=== PATIENT | female | born 1960 | race Caucasian/White ===

== ENCOUNTER → 2016-05-26 | Outpatient (CLI) | payer OTHER ==
--- NOTE | 2016-05-26 13:20 | DX ---
Upright PA and Lateral Chest, 2 Views Total, at 12:20 p.m. Clinical History: 56-year-old female with a cough and fever for 4 days and cold symptoms for 2 weeks and a prior remote history of a pneumothorax. ICD 10 Diagnostic Code: J93.83. Comparison Studies: Chest, dated 06/04/14 and 02/08/2014. Findings: There is a mild sigmoid-shaped thoracic curvature. The cardiac and mediastinal silhouette i s normal in size. There is no focal infiltrate, atelectasis, pleural effusion, peripheral interstitia l edema, or pneumothorax. The patient's arms obscure the anterior retrosternal space on the lateral v iew. The trachea is midline. Impression: No acute abnormality. As requested, results were conveyed to Dr. Tona Bates. A Document Only message has been documented for TONA CRAWLEY in the [employer] Result system on 05/26/2016 13:15, Message ID [id number].
== END ==
LOC: BMCIMAGING 12:21
PROVIDERS: ATTEND Internal Medicine
DX: R05 Cough (principal); R50.9 Fever, unspecified; R09.89 Other specified symptoms and signs involving the circulatory and respiratory systems

== ENCOUNTER → 2016-09-12 | Outpatient (CLI) | payer OTHER | LOC: FIMAGING 14:50 | PROVIDERS: ATTEND Internal Medicine | DX: Z12.31 Encounter for screening mammogram for malignant neoplasm of breast (principal); Z80.3 Family history of malignant neoplasm of breast | CPT/HCPCS: G0202 ==

== ENCOUNTER → 2016-10-22 | Outpatient (CLI) | payer OTHER | LOC: CIMAGING 08:58 | PROVIDERS: ATTEND Obstetrics & Gynecology | DX: D25.1 Intramural leiomyoma of uterus (principal) | CPT/HCPCS: 76856-PO ==

== ENCOUNTER → 2017-10-12 | Outpatient (CLI) | payer OTHER | LOC: FIMAGING 12:09 | PROVIDERS: ATTEND Obstetrics & Gynecology | DX: Z12.31 Encounter for screening mammogram for malignant neoplasm of breast (principal); Z80.3 Family history of malignant neoplasm of breast ==

== ENCOUNTER → 2018-10-13 | Outpatient (CLI) | payer OTHER | LOC: FIMAGING 08:50 ==